=== PATIENT | male | born 1990 | race Caucasian/White ===

== ENCOUNTER 2018-09-12 08:49 | Emergency (ER) | payer MEDICAID ==
[2018-09-12 09:29] LABS: BASO # 0.1 K/uL (0.0-0.2); BASO % 1.1 % (0.0-2.0); EOS # 0.1 K/uL (0.0-0.7); EOS % 1.6 % (0.0-4.0); HEMOGLOBIN 13.5 g/dL (12.0-18.0); LYMPH # 2.3 K/uL (1.0-4.3); MEAN CELL VOLUME 84.2 fL (80.0-94.0); MEAN CORPUSCULAR HEMOGLOBIN 28.7 pg (27.0-31.0); MEAN PLATELET VOLUME 8.3 fL (7.2-11.7); MONO # 0.5 K/uL (0.0-0.8); MONO % 7.4 % (0.0-10.0); NEUT # 3.8 K/uL (1.8-7.0); NEUT % 55.9 % (50.0-75.0); RBC 4.7 Mil/uL (4.40-5.90); RED CELL DISTRIBUTION WIDTH 14.4 % (11.5-14.5); WHITE BLOOD COUNT 6.7 K/uL (4.8-10.8)
[2018-09-12 09:44] LABS: ALB/GLOB RATIO 1.2 (1.0-2.1); ALBUMIN 4.4 g/dL (3.5-5.0); ALT/SGPT 21 U/L (21-72); AST/SGOT 17 U/L (17-59); BLOOD UREA NITROGEN 5 mg/dL (9-20); CALCIUM 9.3 mg/dl (8.6-10.4); GFR NON-AFRICAN AMERICAN > 60
[2018-09-12 09:59] LABS: VENOUS BLOOD GAS BASE EXCESS -6.4 mmol/L (0.0-2.0); VENOUS BLOOD GAS PCO2 33 mmHg (40-60); VENOUS BLOOD GAS PO2 59 mm/Hg (30-55); VENOUS BLOOD PH 7.35 (7.32-7.43)
[2018-09-12] MEDS ORDERED: Iodixanol 320 MG/ML 100 ML BOTTLE IV ONE ×2 (10:01→10:33)
--- NOTE | 2018-09-12 10:38 | C.PDOC ---
History Of Present Illness 28 year old male presents to the emergency department with complaints of pain to the let side of his throat for the last two days. Patient states that last night he had difficulty sleeping due to the pain. He denies fever, chills, cough, nausea, and vomiting. Time Seen by Provider: 09/12/18 09:12 Chief Complaint (Nursing): ENT Problem History Per: Patient History/Exam Limitations: no limitations Onset/Duration Of Symptoms: Days (2) Current Symptoms Are (Timing): Still Present Location Of Pain: Throat Associated Symptoms: Sore Throat. denies: Fever, Chills, Cough, Nausea, Vomiting Past Medical History Reviewed: Historical Data, Nursing Documentation, Vital Signs Vital Signs: Last Vital Signs Temp 98.0 F 09/12/18 09:07 Pulse 72 09/12/18 09:07 Resp 18 09/12/18 09:07 BP 118/79 09/12/18 09:07 Pulse Ox 97 09/12/18 09:07 - Medical History PMH: No Chronic Diseases Surgical History: Appendectomy Family History: States: No Known Family Hx - Social History Hx Alcohol Use: Yes Hx Substance Use: Yes - Immunization History Hx Tetanus Toxoid Vaccination: No Hx Influenza Vaccination: No Hx Pneumococcal Vaccination: No Review Of Systems Except As Marked, All Systems Reviewed And Found Negative. Constitutional: Negative for: Fever, Chills ENT: Positive for: Throat Pain Respiratory: Negative for: Cough Gastrointestinal: Negative for: Nausea, Vomiting Physical Exam - Physical Exam Appears: Non-toxic, No Acute Distress Skin: Normal Color, Warm, Dry Head: Atraumatic, Normacephalic Eye(s): bilateral: Normal Inspection Nose: Normal Oral Mucosa: Moist Throat: Other (swelling to the left side of the throat with uvula deviated to the right) Lymphatic: Adenopathy (left-sided cervical adenopathy with tenderness) Chest: Symmetrical, No Tenderness Cardiovascular: Rhythm Regular, No Murmur Respiratory: Normal Breath Sounds, No Rales, No Rhonchi, No Wheezing Gastrointestinal/Abdominal: Soft, No Tenderness, No Guarding, No Rebound Extremity: Normal ROM Neurological/Psych: Oriented x3, Normal Speech, Normal Cognition ED Course And Treatment - Laboratory Results Result Diagrams: 09/12/18 09:26 09/12/18 09:26 O2 Sat by Pulse Oximetry: 97 (RA) Pulse Ox Interpretation: Normal - CT Scan/US CT Neck Soft Tissue Other Rad Studies (CT/US): Read By Radiologist, Radiology Report Reviewed CT/US Interpretation: IMPRESSION: Findings are consistent with acute left palatine tonsillitis and developing 1.6 x 1.0 cm peritonsillar abscess. Associated significant edema extending to the hypopharynx with mild mass effect on the left lateral oropharyngeal wall and mild narrowing of the oropharyngeal airway. Reactive/infectious/inflammatory left cervical chain lymphadenopathy. Medical Decision Making Medical Decision Making: Plan: VCG CT Neck Soft Tissue CMP CBC Blood Culture Patient seen by Dr. Perales in the ED, peritonsillar abscess was drained. As per Dr. Perales, patient is clear for discharge. Disposition Counseled Patient/Family Regarding: Studies Performed, Diagnosis, Need For Followup, Rx Given - Disposition Referrals: Cirilo Perales MD [Staff Provider] - Disposition: HOME/ ROUTINE Disposition Time: 16:21 Condition: STABLE Prescriptions: Amoxicillin/Clavulanate [Augmentin 875 MG-125 MG] 1 tab PO BID #14 tab Ibuprofen [Motrin] 600 mg PO TID #15 tab Instructions: Peritonsillar Abscess, Adult (DC) Forms: General Discharge Instructions, [facility] (Thai), Work Excuse - POA Present On Arrival: None - Clinical Impression Clinical Impression: Peritonsillar abscess - Scribe Statement The provider has reviewed the documentation as recorded by the Scribe (Dayday Hernandez) Provider Attestation: All medical record entries made by the Scribe were at my direction and personally dictated by me. I have reviewed the chart and agree that the record accurately reflects my personal performance of the history, physical exam, medical decision making, and the department course for this patient. I have also personally directed, reviewed, and agree with the discharge instructions and disposition.
[2018-09-12] MEDS ORDERED: Clindamycin 300 MG in Sodium Chloride 0.9% 50 ML IVPB STA (11:35)
--- NOTE | 2018-09-12 11:47 | CT ---
Date of service: 09/12/2018 PROCEDURE: CT NECK WITH CONTRAST HISTORY: peritonsilar abscess COMPARISON: None available. TECHNIQUE: CT of the neck with intravenous contrast. Coronal and sagittal reformats generated. Intravenous contrast dose: 100 mL Visipaque 320 Radiation dose: Total exam DLP = 395.12 mGy-cm. This CT exam was performed using one or more of the following dose reduction techniques: Automated exposure control, adjustment of the mA and/or kV according to patient size, and/or use of iterative reconstruction technique. FINDINGS: NASOPHARYNX: Within normal limits. SUPRAHYOID NECK: There is asymmetric enlargement of the left patent tonsil. There is an apparent 1.6 x 1.0 cm hypodense lesion with rim enhancement in the inferior lateral peritonsillar region. There is associated significant edema and mass effect on the oropharynx and mild narrowing of the oropharyngeal airway. Edema also extends into the hypopharynx with the effacement of the left piriform sinus. INFRAHYOID NECK: There is no mass or abnormal enhancement in the larynx, hypopharynx, and supraglottic space. Vocal cords intact. MASS: None. GLANDS: Parotid and submandibular glands unremarkable. Normal size thyroid gland, without nodule. LYMPH NODES: There is asymmetric enlargement of the left anterior cervical chain lymph nodes, the largest measures 1.4 cm in transverse diameter. CERVICAL SPINE: No fracture or focal lesion. Within normal limits for the patient's age. VASCULAR STRUCTURES: There is normal intravascular enhancement. OTHER FINDINGS: None. IMPRESSION: Findings are consistent with acute left palatine tonsillitis and developing 1.6 x 1.0 cm peritonsillar abscess. Associated significant edema extending to the hypopharynx with mild mass effect on the left lateral oropharyngeal wall and mild narrowing of the oropharyngeal airway. Reactive/infectious/inflammatory left cervical chain lymphadenopathy.
[2018-09-12] MEDS ORDERED: Clindamycin 600mg/50ml NS 600 MG/50 ML BAG IVPB ONE (11:49)
[2018-09-12] MEDS ORDERED: Dexamethasone 4 mg/1 ml IVP STA (11:53)
[2018-09-12] MEDS ORDERED: Lidocaine 2% w Epi 1:100,000 Inj IJ ONE (13:19)
[2018-09-12 16:29] VITALS: BP 125/85; PULSE 76; RESP 16; TEMP 98.1
[2018-09-12 16:48] VITALS: O2SAT 97
--- NOTE | 2018-09-13 03:17 | OP ---
PROCEDURE DATE: 09/12/2018 PREOPERATIVE DIAGNOSIS: Peritonsillar abscess. POSTOPERATIVE DIAGNOSIS: Peritonsillar abscess. PROCEDURE: Incision and drainage of peritonsillar abscess. SIGNIFICANT FINDINGS: Peritonsillar abscess, left. DESCRIPTION OF PROCEDURE: The patient was brought into room, placed in supine position. The left peritonsillar area was injected with lidocaine with epinephrine for anesthesia. An incision was made in the left peritonsillar area using a #11 blade. Blunt dissection was done using a clamp. Pus was noted coming out, and loculations were opened using a clamp. Bleeding was controlled with time. The patient tolerated the procedure well. Cirilo Perales MD MTDD
== END 2018-09-12 16:29 | disposition home or self-care (01) ==
LOC: EDBD 08:49 → C.ER 08:49
DX: J36 Peritonsillar abscess (principal)
CPT/HCPCS: 42700; 70491; 80053; 82803; 85025; 87040; 96365; 96375; 99283; J1100; Q9967